=== PATIENT | female | born 1995 | race Caucasian/White ===

== ENCOUNTER 2018-08-14 22:34 | Emergency (ER) | payer BC ==
[~2018-08-14] VITALS: Ht 162.6 cm; Wt 51.0 kg
[2018-08-14] MEDS ORDERED: KETOROLAC 30 MG/1 ML ONE (23:00)
[2018-08-14] MEDS ORDERED: BUPIVACAINE 0.25% INFIL ONE (23:00)
[2018-08-14] MEDS ORDERED: DIAZEPAM 5 MG TABLET PO ONE (23:00)
[2018-08-14] MEDS ORDERED: DIAZEPAM 5 MG TABLET ONE (23:00)
[2018-08-14] MEDS ORDERED: KETOROLAC 30 MG/1 ML IM ONE (23:00)
[2018-08-15 00:34] VITALS: BP 108/72
== END 2018-08-15 00:49 | disposition home or self-care (01) ==
LOC: ED 23:07
DX: R51 Headache (principal); R11.2 Nausea with vomiting, unspecified
CPT/HCPCS: 96372; 99283; J1885